=== PATIENT | female | born 2000 | race Caucasian/White ===

== ENCOUNTER 2018-02-03 13:02 | Emergency (ER) | payer BC, OTHER ==
[2018-02-03] MEDS: ONDANSETRON 4 MG INJ IV ×2 (15:32→20:34)
[2018-02-03] MEDS: morphine 2 MG INJ IV (15:32)
[2018-02-03] MEDS: SOD CHLORIDE 0.9% 1,000 ML IV (15:32)
[2018-02-03 15:34] LABS: URINE BLOOD (Dip) POC 1+ (NEGATIVE); URINE GLUCOSE (Dip) POC Negative (NEGATIVE); URINE KETONES (Dip) POC 4+ (NEGATIVE); URINE LEUKOCYTE EST (Dip) POC Negative (NEGATIVE); URINE NITRITE (Dip) POC Negative (NEGATIVE); URINE TOTAL PROTEIN POC 3+ (NEGATIVE)
[2018-02-03 15:59] LABS: ADD MAN DIFF? NO
[2018-02-03 16:00] LABS: WHITE BLOOD COUNT 13.2 10^3/ul (4.8-10.8)
[2018-02-03 16:00] LABS: BASOPHILS % 0.2 % (0.0-2.0); EOSINOPHILS % 0.1 % (0.0-7.0); HEMATOCRIT 41.3 % (37.0-47.0); HEMOGLOBIN 14.3 g/dl (12.0-16.0); LYMPHOCYTES # 0.6 10^3/ul (0.8-2.9); LYMPHOCYTES % 4.6 % (18.0-55.0); MEAN CORPUSCULAR HEMOGLOBIN 28.9 pg (29.0-33.0); MEAN CORPUSCULAR HGB CONC 34.6 g/dl (32.0-37.0); MEAN CORPUSCULAR VOLUME 83.4 fl (72.0-104.0); MEAN PLATELET VOLUME 10.2 fl (7.4-10.4); MONOCYTE # 0.7 10^3/ul (0.3-0.9); MONOCYTES % 5.2 % (0.0-13.0); NEUTROPHIL # 11.8 10^3/ul (1.6-7.5); NEUTROPHILS % 89.3 % (30.0-74.0); PLATELET COUNT 291 10^3/UL (140-415); RED BLOOD COUNT 4.95 10^6/ul (4.20-5.40)
[2018-02-03 16:05] LABS: ADD UMIC YES; UR ASCORBIC ACID NEGATIVE (NEGATIVE); UR BILIRUBIN (Dip) 1+ mg/dL (NEGATIVE); UR BLOOD (Dip) 1+ mg/dL (NEGATIVE); UR CLARITY SLIGHTLY CLOUDY (CLEAR); UR COLOR AMBER (YELLOW); UR GLUCOSE (Dip) NEGATIVE (NEGATIVE); UR KETONES (Dip) 2+ mg/dL (NEGATIVE); UR LEUKOCYTE ESTERASE (Dip) NEGATIVE Leu/ul (NEGATIVE); UR MUCUS MANY /HPF (NONE SEEN); UR NITRITE (Dip) NEGATIVE (NEGATIVE); UR RBC 7 /HPF (0-5); UR SPECIFIC GRAVITY (Dip) 1.042 (1.003-1.030); UR SQUAMOUS EPITHELIAL CELL FEW /HPF (FEW); UR TOTAL PROTEIN (Dip) 3+ mg/dl (NEGATIVE); UR UROBILINOGEN (Dip) 1+ mg/dL (NEGATIVE); UR WBC 6 /HPF (0-5)
[2018-02-03 16:20] LABS: ALANINE AMINOTRANSFERASE 24 IU/L (13-69); ALBUMIN 5.2 g/dl (3.3-4.9); ALKALINE PHOSPHATASE 110 IU/L (42-121); ANION GAP 24 (8-16); ASPARTATE AMINO TRANSFERASE 21 IU/L (15-46); BLOOD UREA NITROGEN 11 mg/dl (7-20); CALCIUM 9.9 mg/dl (8.4-10.2); CARBON DIOXIDE 23 mmol/L (21-31); CHLORIDE 101 mmol/L (97-110); CREATININE 0.65 mg/dl (0.44-1.00); GLUCOSE 92 mg/dl (70-220); LIPASE 30 U/L (23-300); POTASSIUM 3.8 mmol/L (3.5-5.1); SODIUM 144 mmol/L (135-144); TOTAL PROTEIN 8.9 g/dl (6.1-8.1)
[2018-02-03] MEDS: SOD CHLORIDE 0.9% 100 ML (17:51)
[2018-02-03] MEDS: IOHEXOL 300MG/ML 150 ML BTL (17:51)
[2018-02-03] MEDS: CEFTRIAXONE 1 GM/50 ML (PMX) 50 ML IVPB (18:37)
[2018-02-03] MEDS: HYDROCODONE/APAP (5/325) TAB PO (18:47)
[2018-02-03] MEDS: FAMOTIDINE 20 MG TAB PO (18:47)
[2018-02-03] MEDS: SOD CHLORIDE 0.9% 500 ML IV (20:38)
[2018-02-03] MEDS: METOCLOPRAMIDE 10 MG INJ IV (21:56)
[2018-02-03] MEDS: HYDROmorphONE 2 MG/ML SYG IV (21:56)
[2018-02-03] MEDS: LIDOCAINE/MYLANTA 40 ML BTL PO (22:39)
== END 2018-02-03 23:32 | disposition home or self-care (01) ==
LOC: FTE 13:02
DX: K29.70 Gastritis, unspecified, without bleeding (principal)
CPT/HCPCS: 36415; 74177; 80053; 81001; 81003; 83690; 85025; 96374; 96375; 96376; 99285-25